=== PATIENT | male | born 1950 | race Caucasian/White ===

== ENCOUNTER 2017-05-24 22:17 | Emergency (ER) | payer MEDICARE, OTHER ==
[~2017-05-24] VITALS: Ht 183.5 cm; Wt 109.8 kg
[~2017-05-24 22:17] MED LIST: ACETAMINOP650 MG/20. PO; ATIVAN2 MG ORAL; ATIVAN2 MG/ML IM; BACTRIM DS TAB1 EAC1 ORAL; BACTRIM-DS1 EA ORAL; CATAPRES0.1 MG PO; DEPAKOTE500 MG PO; DIABETIC TUSSI PO; DIOVAN160 MG PO; FUROSEMIDE80 MG ORAL; HALOPERIDOL1 MG IM; HUMALOG100 UNIT/4 SUBQ; HUMULIN R100 UNIT/1 SUBQ; KLONOPIN0.5 MG ORAL; KLONOPIN0.5 MG PO; LATUDA80 MG PO; METFORMIN HCL500 M1 ORAL; MILK OF MA2400 MG/10 PO; MULTIVITAMINS1 EAC2 PO; PRILOSEC40 MG PO; QUETIAPINE FUM200 MG PO; SINEMET 25-1001 EAC1 ORAL; SYNTHROID50 MCG PO; VENTOLIN HFA18 GM INH; VITAMIN C500 M1 PO
[2017-05-24 23:03] VITALS: BP 107/62
--- NOTE | 2017-05-25 00:02 | Emergency Room Report ---
History of Present Illness General Chief Complaint: Lower Back Pain or Injury Source: Medical Record, EMS Present Illness HPI 67-year-old male, bedbound, with a stroke, presenting with back pain. [facility] patient had back pain, was given Tylenol. Patient is currently awake, speaking intermittently, stating that he is hungry, not complaining of any pain at this time Allergies: Coded Allergies: No Known Allergies (Verified , 07/23/14) Patient History Past Medical History: see triage record Past Surgical History: none Pertinent Family History: none Reviewed Nursing Documentation: PMH: Agreed; PSxH: Agreed Nursing Documentation-PMH Hx Cardiac Problems: Yes - ANEMIA, HYPOTHYRIODISM, CHF Hx Hypertension: Yes - pancreatitis, cataract Hx COPD: Yes - respiratory failure Hx Diabetes: Yes Hx Cancer: No Hx Gastrointestinal Problems: Yes - dysphagia, GERD History Of Psychiatric Problem: Yes - SCHIZOEFFECTIVE, ANXIETY, DEPRESSION Hx Neurological Problems: Yes - PARKINSONS , DIMENTIA Hx Seizures: Yes Hx Epilepsy: Yes Review of Systems All Other Systems: negative except mentioned in HPI Physical Exam Vital Signs Date Time Temp Pulse Resp B/P (MAP) Pulse Ox O2 Delivery O2 Flow Rate FiO2 05/24/17 22:27 98.7 66 20 110/76 92 Room Air 98.8 Sp02 EP Interpretation: reviewed, normal General Appearance: alert, other - alert, nad Head: normocephalic, atraumatic Eyes: bilateral eye normal inspection, bilateral eye PERRL, bilateral eye EOMI ENT: normal ENT inspection, normal pharynx, normal voice, moist mucus membranes Neck: normal inspection, full range of motion, supple Respiratory: normal inspection, lungs clear, normal breath sounds, no respiratory distress, no retraction, no wheezing, speaking full sentences, chest symmetrical Cardiovascular #1: normal inspection, regular rate, rhythm, no edema, normal capillary refill Cardiovascular #2: 2+ radial (R), 2+ radial (L) Gastrointestinal: normal inspection, non tender, soft, non-distended, no guarding Genitourinary: no CVA tenderness Musculoskeletal: other - nontender back no signs of infection Neurologic: other - neuro aox1, R sided weakness Psychiatric: other - dementia Skin: normal inspection, normal color, no rash, warm/dry, well hydrated, normal turgor Medical Decision Making Diagnostic Impression: Primary Impression: Low back pain ER Course 67-year-old male p/w back pain, currently not complaining of any back pain DDX: Musculoskeletal back pain versus fracture Plan: CT of L-spine, pain control ER course: Patient has remained nontoxic appearing Not complaining of any pain, moving his extremities CT is negative Disposition: Patient will be discharged to snf Please note that this Emergency Department Report was dictated using [employer] machine carver technology software, occasionally this can lead to erroneous entry secondary to interpretation by the dictation equipment. CT/MRI/US Diagnostic Results CT/MRI/US Diagnostic Results : Imaging Test Ordered: CT L SPINE Impression CT L SPINE: No acute fracture or traumatic malalignment. Multilevel degenerative changes. Last Vital Signs Date Time Temp Pulse Resp B/P (MAP) Pulse Ox O2 Delivery O2 Flow Rate FiO2 05/24/17 23:09 98.0 05/24/17 23:03 18 107/62 96 Room Air 05/24/17 22:27 66 Disposition: XFER SNF Condition: Improved Gomez Rosales M.D. May 25, 2017 00:02
[2017-05-25 01:59] VITALS: BP 117/51
[2017-05-25 02:02] VITALS: BP 118/62
[2017-05-25 02:03] VITALS: BP 117/51
--- NOTE | 2017-05-25 10:10 | Diagnostic Imaging Report ---
Indication: Back pain Technique: Continuous helical transaxial imaging of the lumbar spine was obtained from the lung bases to the pubic symphysis. No IV contrast was administered. Coronal 2-D reformats were also obtained. Study obtained in a Siemens sensation [address] Total Dose length Product (DLP): 1168.[address] Dose Index Volume (CTDIvol): 40.64 mGy Comparison: None Findings: The study is significantly limited by motion. In addition the [id number] is limited with regard to the upper part of the sacrum which is usually included on CT of the lumbar spine. The bones are osteopenic. There is no obvious acute injury. Endplate and facet hypertrophic spur formation noted at multiple levels. There is evidence of central spinal stenosis. There is narrowing of the neural foramina bilaterally at multiple levels. Aorta is calcified. A CBD stent is incidentally noted. IMPRESSION: Extensive artifact limited study. No obvious acute injury. Degenerative changes as described above The CT scanner at [facility] is accredited by the [employer] and the scans are performed using dose optimization techniques as appropriate to a performed exam including Automatic Exposure control.
== END 2017-05-25 02:04 | disposition home or self-care (01) ==
LOC: EDBD 22:17 → EMR 22:48
DX: M54.5 Low back pain (principal); E11.9 Type 2 diabetes mellitus without complications; J44.9 Chronic obstructive pulmonary disease, unspecified; G20 Parkinson's disease; F02.80 Dementia in other diseases classified elsewhere, unspecified severity, without behavioral disturbance, psychotic disturbance, mood disturbance, and anxiety; F25.9 Schizoaffective disorder, unspecified; F32.9 Major depressive disorder, single episode, unspecified; F41.9 Anxiety disorder, unspecified; E03.9 Hypothyroidism, unspecified
CPT/HCPCS: 72131; 99284